=== PATIENT | female | born 1975 | race Asian ===

== ENCOUNTER 2022-06-08 09:50 | Outpatient (CLI) | payer OTHER, SELFPAY ==
[2022-06-08 14:11] LABS: Albumin* 4.1 g/dL (3.3-5.0)
[2022-06-08 14:12] LABS: Chloride* 108 mmol/L (96-114); Potassium* 4.1 mmol/L (3.6-5.1); Sodium* 138 mmol/L (135-149)
[2022-06-08 14:14] LABS: Bilirubin Total* 0.7 mg/dL (0.1-1.5); Carbon Dioxide* 25 mmol/L (20-32); Cholesterol* 207 mg/dL (90-199); Creatinine* 0.9 mg/dL (0.5-1.5); Estimated Glomerular Filt Rate 81 ml/min
[2022-06-08 14:15] LABS: Alanine Aminotransferase* 17 U/L (4-35); Alkaline Phosphatase* 52 U/L (40-150); Aspartate Amino Transferase* 22 U/L (12-35); Blood Urea Nitrogen* 20 mg/dL (5-24); Calcium* 9.1 mg/dL (8.4-10.6); Glucose* 93 mg/dL (60-115); HDL Cholesterol* 73 mg/dL (>=50); LDL Cholesterol Calculated 121 mg/dL (<100); Total Protein* 7.1 g/dL (6.0-8.3); Triglycerides* 64 mg/dL (40-149)
[2022-06-08 14:24] LABS: TSH With Reflex to FT4* 0.768 uIU/mL (0.270-4.200)
== END 2022-06-08 09:51 | disposition home or self-care (01) ==
PROVIDERS: PCP Physician Assistant Medical; Visit Provider Physician Assistant Medical
DX: Z00.00 Encounter for general adult medical examination without abnormal findings (principal); E78.5 Hyperlipidemia, unspecified; I10 Essential (primary) hypertension
CPT/HCPCS: 80053; 80061; 84443

== ENCOUNTER 2022-06-27 14:31 | Outpatient (CLI) | payer OTHER, SELFPAY ==
--- NOTE | 2022-06-27 14:40 | CRLHL7_ITS ---
For Patients: As a result of the Century Cures Act, medical imaging exams and procedure reports are released immediately into your electronic medical record. You may view this report before your referring provider. If you have questions, please contact your health care provider. BILATERAL SCREENING MAMMOGRAM WITH COMPUTER-AIDED DETECTION TECHNIQUE: CC and MLO views were obtained. These mammographic images have been obtained using full-field digital technique. These mammographic images were interpreted with the benefit of computer-aided detection. COMPARISON FILM: 07/05/21, 07/02/20, 08/29/17 FINDINGS: The breasts are heterogeneously dense, which may obscure small masses IMPRESSION: There is no radiographic evidence for malignancy. ASSESSMENT: BI-RADS Category 1: Negative RECOMMENDATION: Routine screening mammogram in 1 year. A lay language report of this examination will be provided to the patient. Alcides Damian M.D. Diagnostic Radiologist [email or web address] Transcribed: 5:04 pm DW/Dictated by: Alcides Damian MD @ 06/28/2022 8:29:00 AM (Electronically Signed)
== END 2022-06-27 14:32 | disposition home or self-care (01) ==
PROVIDERS: PCP Physician Assistant Medical; Visit Provider Physician Assistant Medical
DX: Z12.31 Encounter for screening mammogram for malignant neoplasm of breast (principal)
CPT/HCPCS: 77063; 77067

== ENCOUNTER 2022-08-22 12:50 | Outpatient (CLI) | payer OTHER, SELFPAY | END 2022-08-22 12:51 | disposition home or self-care (01) | PROVIDERS: PCP Physician Assistant Medical; Visit Provider Physician Assistant Medical | DX: R00.1 Bradycardia, unspecified (principal); R55 Syncope and collapse | CPT/HCPCS: 93306 ==

== ENCOUNTER 2023-06-08 08:00 | Outpatient (CLI) | payer OTHER, SELFPAY | END 2023-06-08 08:01 | disposition home or self-care (01) | PROVIDERS: PCP Physician Assistant Medical; Referring Provider Physician Assistant Medical; Visit Provider Physician Assistant Medical | DX: Z00.00 Encounter for general adult medical examination without abnormal findings (principal); I10 Essential (primary) hypertension; E78.5 Hyperlipidemia, unspecified | CPT/HCPCS: 80053; 80061; 84443 ==

== ENCOUNTER 2023-08-10 08:04 | Outpatient (CLI) | payer OTHER, SELFPAY ==
--- NOTE | 2023-08-10 08:15 | CRLHL7_ITS ---
For Patients: As a result of the Century Cures Act, medical imaging exams and procedure reports are released immediately into your electronic medical record. You may view this report before your referring provider. If you have questions, please contact your health care provider. BILATERAL SCREENING MAMMOGRAM WITH COMPUTER-AIDED DETECTION TECHNIQUE: CC and MLO views were obtained. These mammographic images have been obtained using full-field digital technique. These mammographic images were interpreted with the benefit of computer-aided detection. COMPARISON FILM: 06/27/22, 07/05/21, 07/02/20. FINDINGS: There are scattered areas of fibroglandular density IMPRESSION: There is no radiographic evidence for malignancy. ASSESSMENT: BI-RADS Category 1: Negative RECOMMENDATION: Routine screening mammogram in 1 year. A lay language report of this examination will be provided to the patient. Alcides Damian M.D. Diagnostic Radiologist [email or web address] Transcribed: 2:08 [email or web address] cramer/Dictated by: Alcides Damian MD @ 08/10/2023 8:52:00 AM (Electronically Signed)
== END 2023-08-10 08:05 | disposition home or self-care (01) ==
LOC: MAMMO 08:05
PROVIDERS: PCP Physician Assistant Medical; Visit Provider Physician Assistant Medical
DX: Z12.31 Encounter for screening mammogram for malignant neoplasm of breast (principal)
CPT/HCPCS: 77067

== ENCOUNTER 2023-12-12 06:23 | Outpatient (CLI) | payer OTHER, SELFPAY ==
--- NOTE | 2023-12-12 07:52 | W.ANESCHARGE ---
Anesthesia Charges Start Date/Time Anesthesia Start Date: 12/12/23 Anesthesia Start Time: 07:22 Stop Date/Time Anesthesia Stop Date: 12/12/23 Anesthesia Stop Time: 07:51
--- NOTE | 2023-12-12 09:41 | W.ANESCHARGE ---
Anesthesia Charges Start Date/Time Anesthesia Start Date: 12/12/23 Anesthesia Start Time: 07:22 Stop Date/Time Anesthesia Stop Date: 12/12/23 Anesthesia Stop Time: 07:51
== END 2023-12-12 06:24 | disposition home or self-care (01) ==
LOC: OP CLINIC 06:24
PROVIDERS: PCP Physician Assistant Medical; Visit Provider Internal Medicine
DX: Z12.11 Encounter for screening for malignant neoplasm of colon (principal); K63.5 Polyp of colon
CPT/HCPCS: 00811; 45380; 88305; J2704

== ENCOUNTER 2024-06-25 10:20 | Outpatient (CLI) | payer OTHER, SELFPAY | END 2024-06-25 10:21 | disposition home or self-care (01) | PROVIDERS: PCP Physician Assistant Medical; Visit Provider Physician Assistant Medical | DX: Z00.00 Encounter for general adult medical examination without abnormal findings (principal); I10 Essential (primary) hypertension; E78.5 Hyperlipidemia, unspecified | CPT/HCPCS: 80053; 80061; 84443 ==

== ENCOUNTER 2024-07-18 14:37 | Outpatient (CLI) | payer OTHER, SELFPAY ==
--- NOTE | 2024-07-18 14:40 | CRLHL7_ITS ---
For Patients: As a result of the Century Cures Act, medical imaging exams and procedure reports are released immediately into your electronic medical record. You may view this report before your referring provider. If you have questions, please contact your health care provider. BILATERAL SCREENING MAMMOGRAM WITH COMPUTER-AIDED DETECTION AND TOMOSYNTHESIS TECHNIQUE: CC and MLO views were obtained. These mammographic images have been obtained using full-field digital technique. These mammographic images were interpreted with the benefit of computer-aided detection. Breast Tomosynthesis was used in this interpretation. COMPARISON FILM: 08/10/23, 06/27/22, 07/05/21. FINDINGS: There are scattered areas of fibroglandular density IMPRESSION: There is no radiographic evidence for malignancy. ASSESSMENT: BI-RADS Category 1: Negative RECOMMENDATION: Routine screening mammogram in 1 year. A lay language report of this examination will be provided to the patient. Alcides Damian M.D. Diagnostic Radiologist [email or web address] JAIME/Dictated by: Alcides Damian MD @ 07/19/2024 1:34:00 PM (Electronically Signed)
== END 2024-07-18 14:38 | disposition home or self-care (01) ==
LOC: MAMMO 14:37
PROVIDERS: PCP Physician Assistant Medical; Visit Provider Physician Assistant Medical
DX: Z12.31 Encounter for screening mammogram for malignant neoplasm of breast (principal)
CPT/HCPCS: 77063; 77067

== ENCOUNTER 2025-06-20 10:34 | Outpatient (CLI) | payer OTHER, SELFPAY ==
--- NOTE | 2025-06-20 10:45 | CRLHL7_ITS ---
For Patients: As a result of the Century Cures Act, medical imaging exams and procedure reports are released immediately into your electronic medical record. You may view this report before your referring provider. If you have questions, please contact your health care provider. INDICATION: BILATERAL SCREENING MAMMOGRAM, ASYMPTOMATIC 49 Y/O FEMALE COMPARISON: 07/18/2024, 08/10/2023, 06/27/2022 TECHNIQUE: Digital mammogram in CC and MLO projections including computer-aided detection (CAD) and tomosynthesis. BREAST COMPOSITION: There are scattered areas of fibroglandular density. FINDINGS: No suspicious findings. ASSESSMENT: BI-RADS 1 Negative RECOMMENDATION: Annual screening mammogram. A lay language report of this examination will be provided to the patient. Dictated by: Alcides Damian MD @ 06/23/2025 09:48:56 (Electronically Signed)
== END 2025-06-20 10:35 | disposition home or self-care (01) ==
LOC: MAMMO 10:34
PROVIDERS: PCP Physician Assistant Medical; Visit Provider Physician Assistant Medical
DX: Z12.31 Encounter for screening mammogram for malignant neoplasm of breast (principal)
CPT/HCPCS: 77063; 77067

== ENCOUNTER 2025-07-08 10:48 | Outpatient (CLI) | payer OTHER, SELFPAY | END 2025-07-08 10:49 | disposition home or self-care (01) | LOC: NFLDREF 07-13 20:51 | PROVIDERS: PCP Physician Assistant Medical; Referring Provider Physician Assistant Medical; Visit Provider Physician Assistant Medical | DX: I10 Essential (primary) hypertension (principal); E78.2 Mixed hyperlipidemia; K21.9 Gastro-esophageal reflux disease without esophagitis; F43.21 Adjustment disorder with depressed mood; L91.8 Other hypertrophic disorders of the skin | CPT/HCPCS: 80053; 80061; 84443 ==